=== PATIENT | male | born 1990 | race Caucasian/White ===

== ENCOUNTER 2023-04-14 19:26 | Emergency (ER) | payer SELFPAY ==
[~2023-04-14] VITALS: Ht 167.6 cm; Wt 113.4 kg
[~2023-04-14 19:26] MED LIST: IBUP-1953 PO; TYL2T PO
[2023-04-15] MEDS ORDERED: NABU-141 PO (00:24)
[2023-04-15 00:33] VITALS: BP 133/100; TEMP 97.9; O2SAT 100
== END 2023-04-15 00:51 | disposition home or self-care (01) ==
LOC: ER 19:26
DX: M10.9 Gout, unspecified (principal); Z79.899 Other long term (current) drug therapy; Z60.2 Problems related to living alone
CPT/HCPCS: 73610-TC; 73630-TC

== ENCOUNTER 2023-08-10 10:52 | Emergency (ER) | payer OTHER ==
[~2023-08-10] VITALS: Ht 170.2 cm; Wt 68.0 kg
[~2023-08-10 10:52] MED LIST changes: +NABU-141 PO
[2023-08-10 11:27] VITALS: BP 116/75; TEMP 98; O2SAT 98
[2023-08-10] MEDS ORDERED: INDO-12 PO (12:27)
[2023-08-10] MEDS: KETOROLAC TROMETHAMINE 15 MG/ML VIAL IM ONE (12:30)
[2023-08-10] MEDS ORDERED: KETOROLAC TROMETHAMINE 15 MG/ML VIAL ONE (12:50)
== END 2023-08-10 12:59 | disposition home or self-care (01) ==
LOC: ER 10:52
DX: M79.672 Pain in left foot (principal); M79.671 Pain in right foot; Z60.2 Problems related to living alone
CPT/HCPCS: 99283; 96372; J1885